=== PATIENT | female | born 2000 | race African-American/Black ===

== ENCOUNTER 2021-03-10 11:26 | Emergency (ER) | payer SELFPAY ==
[~2021-03-10] VITALS: Ht 162.6 cm; Wt 93.0 kg
[2021-03-10] MEDS ORDERED: BACTRIM DS TAB1 EACH PO (12:07)
== END 2021-03-10 12:15 | disposition home or self-care (01) ==
LOC: FSED 11:30
DX: R30.0 Dysuria (principal); R10.30 Lower abdominal pain, unspecified; N39.0 Urinary tract infection, site not specified; F17.210 Nicotine dependence, cigarettes, uncomplicated
CPT/HCPCS: 81003; 81025; 99283